=== PATIENT | female | born 1955 ===

== ENCOUNTER 2022-01-06 08:45 | Inpatient (IN) | payer OTHER ==
[~2022-01-06] VITALS: Ht 157.5 cm; Wt 71.7 kg
[2022-01-06] MEDS ORDERED: COZAAR50 MG PO (09:48)
[2022-01-06] MEDS ORDERED: DAILY VALUE1 EACH (09:48)
[2022-01-06] MEDS ORDERED: SIMVAST PO (09:48)
[2022-01-06] MEDS ORDERED: VITAMIN C PO (09:50)
[2022-01-06] MEDS ORDERED: VITAMIN B-121000 MC4 PO (09:50)
[2022-01-06] MEDS ORDERED: CALCIUM PO (09:51)
[2022-01-06] MEDS ORDERED: VITAMIN E400 UNI7 PO (09:51)
[2022-01-08] MEDS ORDERED: SIMVASTATIN20 MG PO (08:20)
[2022-01-08] MEDS ORDERED: ST. JOSEPH ASPI81 M2 (08:20)
[2022-01-08] MEDS ORDERED: GABAPENTIN300 M2 (08:20)
[2022-01-08] MEDS ORDERED: VITAMIN C100 MG PO (08:21)
[2022-01-08] MEDS ORDERED: CALCIUM500 M1 PO (08:21)
[2022-01-09] MEDS ORDERED: Tylenol #3 PO (08:22)
[2022-01-09] MEDS ORDERED: NAPR500T14 PO (08:23)
== END 2022-01-09 10:32 | disposition home or self-care (01) | DRG 743 ==
LOC: OB/GYN 01-08 05:51 → O/R 01-08 05:51 → SURG 01-08 07:00 → OB/GYN 01-08 11:10
PROVIDERS: ADMIT Obstetrics & Gynecology; ATTEND Obstetrics & Gynecology
PROC: 0UT77ZZ Resection of Bilateral Fallopian Tubes, Via Natural or Artificial Opening (ICD-10-PCS; 2022-01-08)
PROC: 0UT27ZZ Resection of Bilateral Ovaries, Via Natural or Artificial Opening (ICD-10-PCS; 2022-01-08)
PROC: 0UQF0ZZ Repair Cul-de-sac, Open Approach (ICD-10-PCS; 2022-01-08)
PROC: 0USG0ZZ Reposition Vagina, Open Approach (ICD-10-PCS; 2022-01-08)
PROC: 0TJB8ZZ Inspection of Bladder, Via Natural or Artificial Opening Endoscopic (ICD-10-PCS; 2022-01-08)
PROC: 0UT97ZZ Resection of Uterus, Via Natural or Artificial Opening (ICD-10-PCS; principal; 2022-01-08 07:00)
DX: D25.1 Intramural leiomyoma of uterus (principal); N84.0 Polyp of corpus uteri; N81.11 Cystocele, midline; D27.0 Benign neoplasm of right ovary